=== PATIENT | male | born 1950 | race Caucasian/White ===

== ENCOUNTER → 2024-01-30 11:37 | Outpatient (REF) | payer MEDICARE, BC, SELFPAY | LOC: RAD 11:37 | PROVIDERS: ATTENDING PHYSICIAN Family Medicine | DX: R05.1 Acute cough (principal) | CPT/HCPCS: 71046 ==

== ENCOUNTER 2024-10-23 10:41 | Emergency (ER) | payer MEDICARE, SELFPAY ==
[2024-10-23 10:57] VITALS: BP 122/72
[2024-10-23 11:48] VITALS: BP 120/76
[2024-10-23 12:00] VITALS: BP 129/72
--- NOTE | 2024-10-23 12:06 | ED.GENMED ---
History of Present Illness
General
Chief Complaint: Back Pain
Source: patient and spouse
Time Seen by Provider: 10/23/24 11:35
History of Present Illness
History of Present Illness:
This patient is a 74-year-old male presents emergency department with right lower back pain that is been present for the last few days and gradually increasing in intensity. Patient suffers with chronic low back pain and has had several surgeries
on his back most recently a spinal surgery with a stimulator about 6 months ago. He denies new weakness or numbness bowel or bladder incontinence, perianal anesthesia, recent trauma or falls, abdominal pain, nausea, vomiting, fever, chills,
drainage, or other complaints. Patient states he feels completely fine when he is supine but notes symptoms when he tries to stand up walk or otherwise move. The pain is nonradiating.
Past History
Past History
ED Past Medical History: GERD and Other (Chronic back pain)
ED Past Surgical History: Orthopedic
Social History
Tobacco: Non-smoker
Alcohol: Occasional
Drug: None
Personal:
Living: with family
Phy Exam
Physical Exam
Physical Exam:
GENERAL: Alert , in no apparent distress
EYE: pupils equal and reactive
NECK: Supple, no significant adenopathy.
ENT: o/p clr, mmm.
CARDIAC: Regular rate and rhythm .
LUNGS: Clear breath sounds bilaterally, no acute respiratory distress, no wheezes/rales/rhonchi
ABDOMEN: Soft, without focal tenderness, no r/g, no cvat
NEUROLOGICAL: Alert and oriented, no focal neuro deficits
SKIN: Warm and dry, skin intact.
MUSCULOSKELETAL: No edema, well perfused.
PSYCH: Normal and appropriate interaction.
BACK: nl distal pulses,no swelling. Neg SLR. There is pain (but not tenderness) noted at R lower back just superior to edge of pelvis. No ttp,no ttp specifically atstimulator no redness/warmth/fluctuance.
Course
Orders/Labs/Results
Orders:
Orders
10/23/24 11:44
LS Spine Complete, 4 View [CR Lumbar Spine Comp Min 4 Vw*] Urgent
Comment:
Reason For Exam: pain
10/23/24 11:57
Pelvis, 1 or 2 Views CR [CR Pelvis - 1 Or 2 Views ] Urgent
Comment:
Reason For Exam: pain
10/23/24 13:29
Ketorolac [Toradol] 15 mg IM NOW STA
Tramadol HCl [Ultram] 100 mg PO NOW STA
Vital Signs
Initial and Last Documented VS:
Initial Vital Signs
Temp Pulse Resp BP Pulse Ox
98.0 F 66 20 122/72 97
10/23/24 10:57 10/23/24 10:57 10/23/24 10:57 10/23/24 10:57 10/23/24 10:57
Last Documented Vital Signs
Temp Pulse Resp BP Pulse Ox
98.0 F 76 18 127/81 95
10/23/24 10:57 10/23/24 13:39 10/23/24 13:39 10/23/24 14:00 10/23/24 14:00
Update Note
Update Note:
Patient presents to the Emergency Department with __back pain
Number and Complexity of Problems Addressed at the Encounter
� Chronic conditions affecting care:
� Acute Exacerbation and/or Progression of Chronic Illness:
� Differential Diagnosis includes: But not limited to hardware dislodgment, sciatica, musculoskeletal strain, etc. etc.
Amount and/or Complexity of Data to be Reviewed and Analyzed
� I performed an independent evaluation of and my interpretation is:
EKG:
CT:
Xrays: Read by radiology and myself, no acute changes. Patient given copy of report and reviewed with him.
Laboratory Studies:
Other:
� Review of other/old records reveals:
� Clinical information was obtained by an independent historian: who is bedside
� Prescriptions/Medications Considered but not given:
� Further testing considered but not performed:
Risk of Complications and/or Morbidity or Mortality of Patient Management
� Social determinants of health affecting care:
� Discussion with other providers (PCP, Hospitalists, Consultants, etc):
� Escalation of care including admission/observation vs risk of discharge considered: No red flag findings on exam or history suggest cauda equina or acute neurological events. Long discussion with patient and , he feels
better but not full relief of symptoms which is not to be expected. He plans to follow-up with his surgeon this week, Long discussion regarding risks and benefits of medications, we will give him a short course of muscle relaxants, Percocet, and
steroids. Discussed the importance of follow-up and reasons to return to the ER.
ED Attending Note
-
Portions of this chart may have been created with voice recognition software.� Occasional wrong word or��sound alike� substitutions may have occurred due to the inherent limitations of voice recognition software.
Discharge Plan
Departure
Patient Disposition: Home (Routine Discharge)
Date of Disposition: 10/23/24
Time of Disposition: 14:49
Patient with high blood pressure during this ER visit?: Yes
Condition: Good
Discharge Problem:
Back pain
Instructions: Low Back Pain (DC), BLOOD PRESSURE
Prescriptions:
New
oxycodone-acetaminophen [Percocet] 5-325 mg tablet
1 tab PO Q4HPRN PRN (Reason: pain) Qty: 7 0RF
cyclobenzaprine 10 mg tablet
10 mg PO Q12H PRN (Reason: pain) Qty: 7 0RF
prednisone 50 mg tablet
50 mg PO DAILY Qty: 5 0RF
No Action
acetaminophen 650 mg Tablet Extended Release
650 mg PO PRN PRN (Reason: pain)
omeprazole [Prilosec] 20 mg Capsule,Delayed Release(Dr/Ec)
20 mg PO PRN PRN (Reason: GERD)
One A Day Men Complete 240-25-300 mcg Tablet
1 tab PO DAILY
Referrals:
NONE,* [Active, Internal Medicine]
Activity Restrictions/Additional Instructions:
PLEASE SEE YOUR DOCTOR IN CLOSE FOLLOW-UP THIS WEEK! IF YOU DEVELOP INCREASING OR NEW PAIN, FEVER, INCONTINENCE, NUMBNESS, WEAKNESS, ABDOMINAL PAIN, CHEST PAIN, OR OTHER WORRISOME SIGNS, PLEASE RETURN TO THE ER IMMEDIATELY!
Interventions
Interventions:
*Risk Screen - Suicide Last Done: 10/23/24 12:03
*General Assessment Last Done: 10/23/24 10:57
*Neglect/Abuse Screening Last Done: 10/23/24 12:03
*ED- Fall Risk Assessment Last Done: 10/23/24 12:03
*ED COVID-19 Vaccine History Last Done: 10/23/24 12:03
ED-Musculoskeletal Assessment Last Done: 10/23/24 11:46
Discharge Date and Time
Print Language: ICELANDIC
[2024-10-23 13:00] VITALS: BP 142/76
[2024-10-23] MEDS: ULTRAM 100 MG PO (13:32)
[2024-10-23] MEDS: TORADOL 15 MG IM (13:32)
[2024-10-23 14:00] VITALS: BP 127/81
== END 2024-10-23 15:15 | disposition home or self-care (01) ==
LOC: EMR 10:41
PROVIDERS: EMERGENCY PHYSICIAN Emergency Medicine; FAMILY PHYSICIAN Nurse Practitioner
DX: M54.50 Low back pain, unspecified (principal); G89.29 Other chronic pain
CPT/HCPCS: 96372; 99284; 72110; 72170

== ENCOUNTER → 2024-11-01 13:28 | Outpatient (REF) | payer MEDICARE, BC, SELFPAY | LOC: MRI 13:28 | PROVIDERS: ATTENDING PHYSICIAN Physician Assistant Medical; FAMILY PHYSICIAN Physician Assistant Medical; REFERRING PHYSICIAN Physical Medicine & Rehabilitation | DX: M48.062 Spinal stenosis, lumbar region with neurogenic claudication (principal); M54.6 Pain in thoracic spine | CPT/HCPCS: 72072; 72148 ==

== ENCOUNTER → 2025-02-14 17:45 | Outpatient (REF) | payer MEDICARE, BC, SELFPAY | LOC: REG 17:45 | PROVIDERS: ATTENDING PHYSICIAN Family Medicine; OTHER PHYSICIAN Neurological Surgery | DX: M47.816 Spondylosis without myelopathy or radiculopathy, lumbar region (principal) | CPT/HCPCS: 72100 ==

== ENCOUNTER → 2025-03-30 09:44 | Outpatient (REF) | payer MEDICARE, BC, SELFPAY | LOC: RAD 09:44 | PROVIDERS: ATTENDING PHYSICIAN Registered Nurse Neuroscience | DX: M47.817 Spondylosis without myelopathy or radiculopathy, lumbosacral region (principal); Z98.1 Arthrodesis status | CPT/HCPCS: 72100 ==